=== PATIENT | female | born 1980 | race Caucasian/White ===

== ENCOUNTER 2017-03-03 16:48 | Emergency (ER) | payer BC ==
[2017-03-03 18:48] LABS: #Lymphocytes 1.9 thou/uL (1.20-3.40); #Monocytes 0.3 thou/uL (0.11-0.59); #Neutrophils 12.8 thou/uL (1.40-6.50); %Basophils 0.2 % (0.0-1.0); %Eosinophils 0.1 % (0.0-10.0); %Lymphocytes 12.4 % (21.0-51.0); %Monocytes 2.2 % (0.0-10.0); %Neutrophils 85.1 % (42.0-75.0); Hemoglobin 13.4 g/dL (12.0-16.0); Mean Corpuscular Hemoglobin 29.7 pg (27.0-31.0); Mean Platelet Volume 8.1 fL (7.4-10.4); Platelet Count 278 thou/uL (130-400); Red Blood Cell (RBC) Count 4.51 mill/uL (4.20-5.40)
[2017-03-03] MEDS ORDERED: Promethazine HCl 25 MG/ML VIAL ONE (18:57)
[2017-03-03] MEDS ORDERED: Midazolam HCl 5 mg/ml Vial ONE ×2 (18:59→19:01)
[2017-03-03] MEDS ORDERED: Sodium Chloride 0.9% 100 ML ONE (19:00)
[2017-03-03] MEDS ORDERED: Ondansetron ODT 4 MG TAB ONE (19:00)
[2017-03-03 19:03] LABS: ALT (SGPT) 26 U/L (8-55); AST (SGOT) 23 U/L (5-34); Alkaline Phosphatase 50 U/L (40-150); Anion Gap 16 mmol/L (10-20); BUN (Urea Nitrogen) 11 mg/dL (7.0-18.7); Bilirubin, Total 0.3 mg/dL (0.2-1.2); Calc. Creatinine Clearance 0 mL/min (70-130); Carbon Dioxide 23 mmol/L (22-29); Chloride 105 mmol/L (98-107); Estimated GFR-MDRD Greater than 90; Globulin 2.8 g/dL (2.4-3.5); Glucose 112 mg/dL (70-105); Potassium 4.1 mmol/L (3.5-5.1); Protein, Total 6.8 g/dL (6.0-8.3); Sodium 140 mmol/L (136-145)
[2017-03-03 19:27] LABS: Pregnancy Test - Urine (BHCG) Negative (Negative); Pregu Control Background? CLEAR/WHITE (CLR/WHITE); Pregu Control Bar Appear? YES (CONTROL BAR); Specific Gravity 1.019 (1.002-1.036)
== END 2017-03-03 20:10 | disposition home or self-care (01) ==
LOC: NAV ERS 16:48
DX: K52.9 Noninfective gastroenteritis and colitis, unspecified (principal)
CPT/HCPCS: 80053; 81025; 85025; 96365; J2250; J2550; Q0162

== ENCOUNTER 2017-03-04 08:42 | Emergency (ER) | payer BC ==
[2017-03-04] MEDS ORDERED: Sodium Chloride 0.9% 1,000 ML ONE ×2 (09:07→11:00)
[2017-03-04] MEDS ORDERED: Ketorolac Tromethamine 30 MG/ML VIAL ONE (09:07)
[2017-03-04] MEDS ORDERED: Ondansetron HCl/PF 4 MG/2 ML Vial ONE (09:07)
[2017-03-04 09:18] LABS: #Basophils 0.1 thou/uL (0.0-0.2); #Lymphocytes 2.9 thou/uL (1.20-3.40); #Monocytes 0.8 thou/uL (0.11-0.59); #Neutrophils 12.6 thou/uL (1.40-6.50); %Basophils 0.4 % (0.0-1.0); %Eosinophils 0.2 % (0.0-10.0); %Lymphocytes 17.8 % (21.0-51.0); %Monocytes 4.6 % (0.0-10.0); Hemoglobin 14.1 g/dL (12.0-16.0); Mean Corpuscular HGB CONC 32.1 g/dL (32.0-36.0); Mean Corpuscular Hemoglobin 29.2 pg (27.0-31.0); Mean Corpuscular Volume 90.9 fl (81.0-99.0); Mean Platelet Volume 7.7 fL (7.4-10.4); Platelet Count 318 thou/uL (130-400); RBC Distribution Width 12.6 % (11.5-14.5); Red Blood Cell (RBC) Count 4.83 mill/uL (4.20-5.40); White Blood Cell (WBC) Count 16.3 thou/uL (4.8-10.8)
[2017-03-04 09:33] LABS: ALT (SGPT) 26 U/L (8-55); AST (SGOT) 21 U/L (5-34); Albumin 4.2 g/dL (3.5-5.0); Alkaline Phosphatase 51 U/L (40-150); Anion Gap 14 mmol/L (10-20); BUN (Urea Nitrogen) 10 mg/dL (7.0-18.7); Bilirubin, Total 0.3 mg/dL (0.2-1.2); Calc. Creatinine Clearance 0 mL/min (70-130); Carbon Dioxide 22 mmol/L (22-29); Chloride 110 mmol/L (98-107); Estimated GFR-MDRD 86; Globulin 2.8 g/dL (2.4-3.5); Glucose 132 mg/dL (70-105); Lipase 8 U/L (8-78); Potassium 3.9 mmol/L (3.5-5.1); Sodium 142 mmol/L (136-145)
[2017-03-04 09:48] LABS: Bilirubin Negative (Negative); Blood, Urine Large (Negative); Clarity Slightly Cloudy (Clear); Glucose, Urine (Dipstick) Negative (Negative); Leukocyte Negative (Negative); Nitrite Negative (Negative); Protein, Urine (Dipstick) Negative (Neg-Trace); Urobilinogen 0.2 mg/dL (0.2-1.0); pH, Urine 5.5 (5.0-9.0)
[2017-03-04 09:51] LABS: Specific Gravity, Urine 1.031 (1.002-1.036)
[2017-03-04 09:53] LABS: Bacteria/HPF 1+ HPF (None Seen); RBC/HPF GREATER THAN 50-TNTC HPF (0-3)
[2017-03-04 09:54] LABS: Crystals/HPF 1+ CA OXALATE HPF (Negative)
[2017-03-04] MEDS ORDERED: Morphine 4 MG/ML Carpuject ONE (11:00)
--- NOTE | 2017-03-04 11:01 | CT ---
CT ABDOMEN AND PELVIS WITHOUT CONTRAST: HISTORY: Left lower abdominal pain, nausea, and vomiting. FINDINGS: Absence of oral and IV contrast reduces the sensitivity of the arteriovenous malformation, particular ly for the evaluation of solid organs involved. Lung bases are unremarkable. No free air or free fluid is seen in the abdomen or pelvis. No calcifi ed gallstones are seen. A normal-appearing appendix is noted. No calculi are seen in the kidneys or ureters. There is a 2 mm calculus at the left UVJ with mild ip silateral hydroureteral nephrosis. Uterus and ovaries are present. No aneurysmal dilatation of the abdominal aorta is seen. No acute o sseous abnormality is seen. IMPRESSION: A 2 mm left ureterovesical junction calculus with mild ipsilateral hydroureteronephrosis. POS: [facility]
== END 2017-03-04 12:09 | disposition home or self-care (01) ==
LOC: NAV ERS 08:42
DX: N13.2 Hydronephrosis with renal and ureteral calculous obstruction (principal)
CPT/HCPCS: 36415; 74176; 80053; 81003; 81015; 83690; 85025; 96361; 96374; 96375; J1885; J2270; J2405; J7050